=== PATIENT | female | born 1990 | race African-American/Black ===

== ENCOUNTER 2022-01-12 04:54 | Emergency (ER) | payer MEDICAID ==
[~2022-01-12] VITALS: Ht 154.9 cm; Wt 53.0 kg
[2022-01-12 05:12] VITALS: BP 164/95
[2022-01-12] MEDS ORDERED: IBUP-2029 MT (06:04)
[2022-01-12] MEDS ORDERED: PENI500T MT (06:04)
[2022-01-12] MEDS ORDERED: T3 PO (06:04)
== END 2022-01-12 06:19 | disposition home or self-care (01) ==
LOC: ER 04:54
DX: K02.9 Dental caries, unspecified (principal); K04.01 Reversible pulpitis; F17.290 Nicotine dependence, other tobacco product, uncomplicated; Z98.890 Other specified postprocedural states
CPT/HCPCS: 99281; 99283

== ENCOUNTER 2023-08-15 23:27 | Emergency (ER) | payer MEDICAID ==
[~2023-08-15] VITALS: Ht 154.9 cm; Wt 552.0 kg
[~2023-08-15 23:27] MED LIST: IBUP-2029 MT; PENI500T MT; T3 PO
[2023-08-16 00:07] VITALS: TEMP 98; O2SAT 99
[2023-08-16 00:30] VITALS: BP 81/42; PULSE 83; RESP 16
[2023-08-16] MEDS ORDERED: KETOROLAC 15MG/ML VIAL IM ONE (00:30)
== END 2023-08-16 01:45 | disposition left against medical advice (07) ==
LOC: ER 23:27
DX: K08.89 Other specified disorders of teeth and supporting structures (principal); Z98.890 Other specified postprocedural states
CPT/HCPCS: 99283; 96372; J1885

== ENCOUNTER 2023-08-25 19:26 | Emergency (ER) | payer MEDICAID ==
[~2023-08-25] VITALS: Ht 154.9 cm; Wt 51.0 kg
[2023-08-25 19:37] VITALS: BP 142/106; PULSE 90; RESP 18; TEMP 98.7; O2SAT 99
[2023-08-25] MEDS ORDERED: IBUP-2028 MT (19:59)
[2023-08-25] MEDS ORDERED: AMOX1TAB16 MT (19:59)
[2023-08-25] MEDS: KETOROLAC 60MG/2ML VIAL IM ONE (20:00)
== END 2023-08-25 21:35 | disposition home or self-care (01) ==
LOC: ER 19:26
DX: K04.7 Periapical abscess without sinus (principal); R68.84 Jaw pain; Z98.890 Other specified postprocedural states; Z79.899 Other long term (current) drug therapy
CPT/HCPCS: 99281; 99283

== ENCOUNTER 2023-10-13 01:18 | Emergency (ER) | payer MEDICAID ==
[~2023-10-13] VITALS: Ht 162.6 cm; Wt 54.0 kg
[~2023-10-13 01:18] MED LIST changes: +AMOX1TAB16 MT; +IBUP-2028 MT
[2023-10-13 01:45] VITALS: BP 155/95; PULSE 18; RESP 16; TEMP 98.2; O2SAT 98
[2023-10-13] MEDS ORDERED: CLIN-194 MT (03:59)
[2023-10-13] MEDS ORDERED: NAPR-1129 MT (03:59)
[2023-10-13] MEDS: CLINDAMYCIN HCL 150MG CAPSULE PO NR (04:07)
[2023-10-13] MEDS: KETOROLAC 60MG/2ML VIAL IM NR (04:07)
[2023-10-13] MEDS: ACETAMINOPHEN 325MG TABLET PO NR (04:08)
== END 2023-10-13 04:17 | disposition home or self-care (01) ==
LOC: ER 01:18
DX: K04.7 Periapical abscess without sinus (principal); Z98.890 Other specified postprocedural states
CPT/HCPCS: 99283; Z7610; J1885

== ENCOUNTER 2025-05-02 18:55 | Emergency (ER) | payer SELFPAY ==
[~2025-05-02] VITALS: Ht 154.9 cm; Wt 54.0 kg
[~2025-05-02 18:55] MED LIST changes: +CLIN-194 MT; +IBUP-1455 MT; -IBUP-2029 MT; +NAPR-1129 MT
[2025-05-02 18:58] VITALS: O2SAT 99
[2025-05-02 19:13] VITALS: BP 124/85; PULSE 86; RESP 16; TEMP 37.1; O2SAT 100
== END 2025-05-02 22:49 | disposition left against medical advice (07) ==
LOC: ER 18:55
DX: R68.84 Jaw pain (principal); Z53.21 Procedure and treatment not carried out due to patient leaving prior to being seen by health care provider
CPT/HCPCS: 99281